=== PATIENT | female | born 1980 | race Caucasian/White ===

== ENCOUNTER → 2017-08-15 | Outpatient (CLI) | payer OTHER ==
[2017-08-15 13:17] LABS: BASO % 0.3 % (0.0-1.0); EOS # 0.1 10^3/uL (0.0-0.50); EOS % 0.8 % (0.0-3.0); HEMOGLOBIN 13.7 g/dl (12.0-16.0); IMMATURE GRANULOCYTE % 0.3 % (0-0); LYMPH # 2.1 10^3/uL (1.5-4.5); LYMPH % 26.9 % (24.0-44.0); MEAN CORPUSCULAR HEMOGLOBIN 28.9 pg (27.0-33.0); MEAN CORPUSCULAR HGB CONC 34.3 g/dl (32.0-36.5); MEAN CORPUSCULAR VOLUME 84.4 fl (80.0-96.0); MONO # 0.5 10^3/uL (0.0-0.8); NEUTROPHILS % 64.7 % (36.0-66.0); PLATELET COUNT, AUTOMATED 259 10^3/uL (150-450); RED BLOOD COUNT 4.74 10^6/uL (4.00-5.40); RED CELL DISTRIBUTION WIDTH 12.6 % (11.5-14.5); WHITE BLOOD COUNT 7.7 10^3/uL (4.0-10.0)
[2017-08-15 15:18] LABS: CHLAMYDIA DNA AMPLIFICATION NEGATIVE (NEGATIVE); GC DNA AMPLIFICATION NEGATIVE (NEGATIVE)
[2017-08-16 09:57] LABS: RUBELLA IgG QUALITATIVE IMMUNE (IMMUNE)
[2017-08-16 10:04] LABS: HBsAg Prenatal NEGATIVE (NEGATIVE)
[2017-08-16 10:25] LABS: HEPATITIS C VIRUS ABY INDEX < 0.0 INDEX (<0.8)
[2017-08-16 10:26] LABS: HIV 1&2 SCREEN CENTAUR NEGATIVE (NEGATIVE)
== END ==
LOC: M SMT 11:09
DX: Z36.9 Encounter for antenatal screening, unspecified (principal)
CPT/HCPCS: 86762

== ENCOUNTER → 2017-09-12 | Outpatient (CLI) | payer OTHER | LOC: M SMT 14:24 | DX: Z34.82 Encounter for supervision of other normal pregnancy, second trimester (principal) | CPT/HCPCS: 76811 ==

== ENCOUNTER → 2017-10-12 | Outpatient (CLI) | payer OTHER | LOC: M SMT 08:00 | DX: Z34.82 Encounter for supervision of other normal pregnancy, second trimester (principal) | CPT/HCPCS: 76816 ==

== ENCOUNTER → 2018-01-18 | Outpatient (REF) | payer OTHER | LOC: M LAB REF 16:57 | DX: Z34.83 Encounter for supervision of other normal pregnancy, third trimester (principal); Z3A.00 Weeks of gestation of pregnancy not specified ==

== ENCOUNTER 2018-02-02 05:02 | Inpatient (IN) | payer OTHER ==
[2018-02-02 05:56] LABS: HEMATOCRIT 34.8 % (36.0-47.0); HEMOGLOBIN 11.7 g/dl (12.0-15.5); MEAN CORPUSCULAR HGB CONC 33.6 g/dl (32.0-36.5); MEAN CORPUSCULAR VOLUME 83.3 fl (80.0-96.0); PLATELET COUNT, AUTOMATED 249 10^3/uL (150-450); RED BLOOD COUNT 4.18 10^6/uL (4.00-5.40); RED CELL DISTRIBUTION WIDTH 14.6 % (11.5-14.5); WHITE BLOOD COUNT 8.9 10^3/uL (4.0-10.0)
[2018-02-02] MEDS ORDERED: ceFAZolin 2 GM/D5W 50 ML IV BAG (J0690 PER 500MG) As Ordered (06:16)
[2018-02-02] MEDS ORDERED: BICITRA 30ML SOLN UDC As Ordered (06:16)
[2018-02-02] MEDS ORDERED: LR 1,000 ML IV (06:45)
[2018-02-02] MEDS: BICITRA 30ML SOLN UDC PO (07:32)
[2018-02-02] MEDS: LR 1,000 ML IV ×3 (07:32→14:01)
[2018-02-02] MEDS ORDERED: METOCLOPRAMIDE INJ 10MG/2ML VIAL (J2765) IV ×2 (07:47→10:00)
[2018-02-02] MEDS ORDERED: ONDANSETRON 4MG/2ML VIAL (J2405) IV ×3 (07:47→10:00)
[2018-02-02] MEDS ORDERED: NALBUPHINE HCL 10 MG/ML AMP (J2300) IV (07:47)
[2018-02-02] MEDS ORDERED: NALOXONE INJ 0.4 MG/1 ML VIAL (J2310) IV ×2 (07:47)
[2018-02-02] MEDS ORDERED: OXYTOCIN INJ 10 UNITS/ML VIAL (J2590) As Ordered (07:48)
[2018-02-02] MEDS ORDERED: MORPHINE PRES-FREE INJ 10 MG/10 ML VIAL (J2274) As Ordered (07:48)
[2018-02-02] MEDS ORDERED: ONDANSETRON 4MG/2ML VIAL (J2405) As Ordered (07:59)
[2018-02-02] MEDS ORDERED: KETOROLAC 60 MG/2 ML VIAL (J1885) As Ordered (08:16)
[2018-02-02] MEDS ORDERED: PHENYLephrine HCL 500 MCG/5 ML (100MCG/ML) SYRINGE (J2370) As Ordered (08:16)
[2018-02-02] MEDS ORDERED: ePHEDrine SULFATE 25 MG/5 ML(5MG/ML) SYRINGE As Ordered ×2 (08:16)
[2018-02-02] MEDS ORDERED: METOCLOPRAMIDE INJ 10MG/2ML VIAL (J2765) As Ordered (08:24)
[2018-02-02] MEDS ORDERED: fentaNYL 100 MCG/2 ML INJECTION (J3010) As Ordered (08:38)
[2018-02-02] MEDS ORDERED: MEPERIDINE 50 MG/ML 1ML VIAL (J2175) As Ordered (08:53)
[2018-02-02] MEDS: OXYTOCIN DRIP 30 UNITS in APPROPRIATE DILUENT 1 EA IV (09:04)
[2018-02-02] MEDS ORDERED: PROMETHAZINE 25 MG TAB PO (09:15)
[2018-02-02] MEDS ORDERED: RHOGAM 300 MCG (1500 IU) INJ (J2790) IM (09:15)
[2018-02-02] MEDS ORDERED: MEASLES,MUMPS,RUBELLA VACCINE INJ (MMR-II) (90707) SC (09:15)
[2018-02-02] MEDS ORDERED: fentaNYL 100 MCG/2 ML INJECTION (J3010) IV (10:00)
[2018-02-02] MEDS: PERCOCET 5MG/325MG TAB PO (13:03)
[2018-02-02] MEDS: KETOROLAC 30 MG/ML VIAL (J1885) IV ×2 (14:00→20:23)
[2018-02-02] MEDS: DOCUSATE SODIUM 100 MG CAP PO (20:22)
[2018-02-03] MEDS: SIMETHICONE 80 MG CHEW TAB PO ×2 (02:23→10:11)
[2018-02-03] MEDS: KETOROLAC 30 MG/ML VIAL (J1885) IV (02:25)
[2018-02-03] MEDS: PERCOCET 5MG/325MG TAB PO ×3 (02:26→20:05)
[2018-02-03 07:35] LABS: HEMATOCRIT 29.9 % (36.0-47.0); HEMOGLOBIN 10.1 g/dl (12.0-15.5); MEAN CORPUSCULAR HEMOGLOBIN 28.1 pg (27.0-33.0); MEAN CORPUSCULAR HGB CONC 33.8 g/dl (32.0-36.5); MEAN CORPUSCULAR VOLUME 83.3 fl (80.0-96.0); PLATELET COUNT, AUTOMATED 219 10^3/uL (150-450); RED BLOOD COUNT 3.59 10^6/uL (4.00-5.40); RED CELL DISTRIBUTION WIDTH 14.6 % (11.5-14.5); WHITE BLOOD COUNT 10.6 10^3/uL (4.0-10.0)
[2018-02-03] MEDS: DOCUSATE SODIUM 100 MG CAP PO ×2 (08:56→21:59)
[2018-02-03] MEDS: PRENATAL VITAMINS CHEWABLE TABLET PO (08:56)
[2018-02-03] MEDS: IBUPROFEN 800 MG TAB PO ×2 (10:11→18:07)
[2018-02-03] MEDS: MIRALAX *UNIT DOSE* 17GM PACKET PO (18:07)
[2018-02-04] MEDS: IBUPROFEN 800 MG TAB PO ×2 (02:26→10:01)
[2018-02-04] MEDS: PRENATAL VITAMINS CHEWABLE TABLET PO (10:01)
[2018-02-04] MEDS: DOCUSATE SODIUM 100 MG CAP PO (10:01)
[2018-02-04] MEDS: PERCOCET 5MG/325MG TAB PO (11:45)
== END 2018-02-04 12:10 | disposition home or self-care (01) | DRG 540 ==
LOC: M LDI 05:02 → M OBS 10:29
PROVIDERS: Obstetrics & Gynecology
PROC: 10D00Z1 Extraction of Products of Conception, Low, Open Approach (ICD-10-PCS; principal; 2018-02-02 07:30)
DX: O82 Encounter for cesarean delivery without indication (principal); Z87.59 Personal history of other complications of pregnancy, childbirth and the puerperium; Z37.0 Single live birth; Z3A.39 39 weeks gestation of pregnancy; Z79.899 Other long term (current) drug therapy

== ENCOUNTER → 2018-12-06 | Outpatient (CLI) | payer OTHER ==
[~2018-12-06] MED LIST: COLA100C5 PO; IBUP80TA PO; OXYC1TAB23 PO; PRENTAB9 PO
[2018-12-06 13:45] LABS: BASO % 0.3 % (0.0-1.0); EOS # 0.1 10^3/uL (0.0-0.50); EOS % 1.1 % (0.0-3.0); HEMATOCRIT 42.7 % (36.0-47.0); HEMOGLOBIN 13.9 g/dl (12.0-15.5); LYMPH # 1.8 10^3/uL (1.5-4.5); LYMPH % 26.1 % (24.0-44.0); MEAN CORPUSCULAR HEMOGLOBIN 28.8 pg (27.0-33.0); MEAN CORPUSCULAR HGB CONC 32.6 g/dl (32.0-36.5); MEAN CORPUSCULAR VOLUME 88.6 fl (80.0-96.0); MONO # 0.5 10^3/uL (0.0-0.8); MONO % 7.2 % (0.0-5.0); NEUTROPHILS # 4.6 10^3/uL (1.8-7.7); NEUTROPHILS % 65.2 % (36.0-66.0); PLATELET COUNT, AUTOMATED 262 10^3/uL (150-450); RED BLOOD COUNT 4.82 10^6/uL (4.00-5.40); WHITE BLOOD COUNT 7.1 10^3/uL (4.0-10.0)
[2018-12-06 15:26] LABS: CHLAMYDIA DNA AMPLIFICATION NEGATIVE (NEGATIVE); GC DNA AMPLIFICATION NEGATIVE (NEGATIVE)
[2018-12-07 11:24] LABS: RUBELLA IgG QUALITATIVE IMMUNE (IMMUNE)
[2018-12-07 15:21] LABS: HIV 1&2 SCREEN CENTAUR NEGATIVE (NEGATIVE)
== END ==
LOC: M SMT 10:44
PROVIDERS: ATTEND Advanced Practice Midwife
DX: Z34.81 Encounter for supervision of other normal pregnancy, first trimester (principal); Z3A.11 11 weeks gestation of pregnancy

== ENCOUNTER → 2019-01-31 | Outpatient (CLI) | payer OTHER ==
--- NOTE | 2019-01-31 11:43 | REP ---
OB ULTRASOUND: Real-time sonographic evaluation of gravid uterus performed. There is a single living intrauterine gestation, estimated gestational age 20 weeks 0 days based on today's ultrasound measurements, EDC 06/20/2019. BPD 45 mm = 19 weeks 4 days HC 169 mm = 19 weeks 4 days AC 151 mm = 20 weeks 2 days Femur length 32 mm = 20 weeks 0 days HC/AC ratio 1.12 within normal range. Estimated weight 333 grams, 53rd percentile. Cervix closed and measures 3.3 cm in length. heart rate 152 beats per minute. SEEN/GROSSLY UNREMARKABLE Lateral ventricles Yes Posterior fossa Yes Upper lip No Four-chamber heart No LVOT No RVOT No Stomach Yes Cord insertion Yes Three vessel cord Yes Kidneys Yes Bladder Yes Spine Yes position: Transverse with head toward the maternal left side. Placenta: Anterior and grade 1 with no previa or abruption. Amniotic fluid: Within normal limits. Electronically Signed by Preston Godoy MD 01/31/2019 05:13 P
== END ==
LOC: M RAD 10:05
PROVIDERS: ATTEND Advanced Practice Midwife
DX: O09.522 Supervision of elderly multigravida, second trimester (principal); Z3A.20 20 weeks gestation of pregnancy

== ENCOUNTER → 2019-03-07 | Outpatient (CLI) | payer OTHER ==
--- NOTE | 2019-03-11 13:03 | REP ---
Clinical: Anatomical evaluation. Comparison: 01/31/2019 . Findings: Examination demonstrates a single live intrauterine in transverse (head to maternal left) presentation. motion is identified by technologist. Placenta is noted anterior and grade zero without evidence for placenta previa or abruption. Amniotic fluid volume is normal. Cervix measures 4.3 cm in length and appears closed. No evidence for nuchal cord. Gestational age by LMP 25 weeks 0 days with SHELLEY 06/20/2019 . Gestational age by current measurements 25 weeks 1 day with SHELLEY 06/19/2019 . FHR equals 155 beats per minute. Estimated weight 847 grams ( 66 percentile). Anatomical assessment demonstrates normal structures including cranium, choroid plexus, cavum, cerebellum/posterior fossa, facial features, lungs, four-chamber heart/ventricular outflow tracts, diaphragm, stomach, cord insertion/three-vessel cord, bladder, and lower extremities. Impression: 1. Single live intrauterine in transverse lie demonstrating appropriate interval growth. 2. In conjunction with prior examination anatomical assessment is complete and normal. Electronically Signed by David Mejia MD 03/11/2019 12:55 P
== END ==
LOC: M RAD 10:19
PROVIDERS: ATTEND Advanced Practice Midwife
DX: O09.522 Supervision of elderly multigravida, second trimester (principal); Z3A.25 25 weeks gestation of pregnancy

== ENCOUNTER → 2019-04-18 | Outpatient (CLI) | payer OTHER ==
[2019-04-18 14:44] LABS: BASO % 0.1 % (0.0-1.0); EOS # 0.1 10^3/uL (0.0-0.5); EOS % 0.6 % (0.0-3.0); HEMATOCRIT 38.2 % (36.0-47.0); HEMOGLOBIN 12.7 g/dl (12.0-15.5); LYMPH # 1.7 10^3/uL (1.5-5.0); LYMPH % 20.3 % (24.0-44.0); MEAN CORPUSCULAR HEMOGLOBIN 29.1 pg (27.0-33.0); MEAN CORPUSCULAR HGB CONC 33.2 g/dl (32.0-36.5); MEAN CORPUSCULAR VOLUME 87.4 fl (80.0-96.0); MONO # 0.5 10^3/uL (0.0-0.8); MONO % 5.8 % (0.0-5.0); NEUTROPHILS # 6.2 10^3/uL (1.5-8.5); NEUTROPHILS % 72.8 % (36.0-66.0); PLATELET COUNT, AUTOMATED 227 10^3/uL (150-450); RED BLOOD COUNT 4.37 10^6/uL (4.00-5.40); WHITE BLOOD COUNT 8.6 10^3/uL (4.0-10.0)
== END ==
LOC: M LAB 13:06
PROVIDERS: ATTEND Advanced Practice Midwife
DX: O09.522 Supervision of elderly multigravida, second trimester (principal); Z3A.00 Weeks of gestation of pregnancy not specified

== ENCOUNTER → 2019-04-25 | Outpatient (CLI) | payer OTHER | LOC: M LAB 07:27 | PROVIDERS: ATTEND Advanced Practice Midwife | DX: O09.522 Supervision of elderly multigravida, second trimester (principal); Z3A.00 Weeks of gestation of pregnancy not specified ==

== ENCOUNTER → 2019-05-27 | Outpatient (REF) | payer OTHER | LOC: M LAB REF 12:57 | PROVIDERS: ATTEND Specialist | DX: O09.523 Supervision of elderly multigravida, third trimester (principal); Z3A.00 Weeks of gestation of pregnancy not specified ==

== ENCOUNTER 2019-06-23 00:45 | Inpatient (IN) | payer OTHER ==
[2019-06-23] VITALS (9 sets, daily range): BP systolic 113–123; BP diastolic 57–65
[~2019-06-23] VITALS: Ht 177.8 cm; Wt 119.1 kg
[~2019-06-23 00:45] MED LIST changes: +ACET-861 PO
[2019-06-23] MEDS ORDERED: LACTATED RINGER'S 1000 ML IV STA (01:55)
[2019-06-23] MEDS ORDERED: LR 1,000 ML IV SCH ×3 (01:55→06:15)
[2019-06-23] MEDS ORDERED: BICITRA 30ML SOLN UDC PO ONE (02:00)
[2019-06-23] MEDS ORDERED: ceFAZolin SOD 2 GM in IV 1 EA IV ONE (02:00)
[2019-06-23 02:27] LABS: HEMOGLOBIN 12.8 g/dl (12.0-15.5); MEAN CORPUSCULAR HEMOGLOBIN 28.4 pg (27.0-33.0); MEAN CORPUSCULAR VOLUME 88.9 fl (80.0-96.0); PLATELET COUNT, AUTOMATED 244 10^3/uL (150-450); WHITE BLOOD COUNT 9.5 10^3/uL (4.0-10.0)
[2019-06-23] MEDS ORDERED: MORPHINE PRES-FREE INJ 10 MG/10 ML VIAL (J2274) As Ordered ONE (04:44)
[2019-06-23] MEDS ORDERED: OXYTOCIN INJ 10 UNITS/ML VIAL (J2590) As Ordered ONE (05:11)
[2019-06-23] MEDS ORDERED: KETOROLAC 60 MG/2 ML VIAL (J1885) As Ordered ONE (05:19)
[2019-06-23] MEDS ORDERED: ONDANSETRON 4MG/2ML VIAL (J2405) As Ordered ONE (05:19)
[2019-06-23] MEDS ORDERED: dexameTHASONE 4 MG/ML 1ML VIAL (J1100) As Ordered ONE ×2 (05:19→05:20)
[2019-06-23] MEDS ORDERED: ePHEDrine SULFATE 25 MG/5 ML(5MG/ML) SYRINGE As Ordered ONE (05:20)
[2019-06-23] MEDS ORDERED: OXYTOCIN DRIP 30 UNITS in IV 1 EA IV SCH (05:56)
[2019-06-23] MEDS ORDERED: ONDANSETRON 4MG/2ML VIAL (J2405) IV PRN ×3 (06:00→08:00)
[2019-06-23] MEDS ORDERED: MEASLES,MUMPS,RUBELLA VACCINE INJ (MMR-II) (90707) SC SCH (06:00)
[2019-06-23] MEDS ORDERED: RHOGAM 300 MCG (1500 IU) INJ (J2790) IM SCH (06:00)
[2019-06-23] MEDS ORDERED: DOCUSATE SODIUM 100 MG CAP PO PRN (06:00)
[2019-06-23] MEDS ORDERED: OXYC1TAB23 PO (06:01)
[2019-06-23] MEDS ORDERED: fentaNYL 100 MCG/2 ML INJECTION (J3010) As Ordered ONE (06:05)
[2019-06-23] MEDS ORDERED: METOCLOPRAMIDE INJ 10MG/2ML VIAL (J2765) IV PRN ×2 (06:15→08:00)
[2019-06-23] MEDS ORDERED: fentaNYL 100 MCG/2 ML INJECTION (J3010) IV PRN (06:15)
[2019-06-23] MEDS ORDERED: MEPERIDINE INJ 25 MG/ML VIAL (J2175) IV PRN (06:15)
[2019-06-23] MEDS ORDERED: PERCOCET 5MG/325MG TAB PO PRN (06:15)
[2019-06-23] MEDS ORDERED: METHYLERGONOVINE MALEATE 0.2 MG/ML VIAL (J2210) IM STA (06:35)
--- NOTE | 2019-06-23 07:04 | HPE ---
DATE OF ADMISSION: 06/23/2019 This is a 38-year-old , 0, 3, 2, female at 40 and 2/7 weeks gestation by LMP consistent with a 11-week ultrasound. EDC 06/21/2019 who notes a spontaneous loss of fluid at approximately midnight on the day of admission. She continued to leak fluid and contracted started to increase. She denies vaginal bleeding. She has a history of 1 prior and is planning on repeat . COURSE: The patient initiated care at 11 weeks gestation, 12/06/2018. Her first trimester blood pressure 130/78. The patient plans to repeat for delivery Her initial scheduled time was delayed due to history of hand, foot in mouth disease late in . OBSTETRICAL HISTORY: 1. 2007 39 week vaginal delivery 7 pound 1 ounce female infant female delivered vaginally. She had severe vaginal lacerations requiring revision. 2. 2014 miscarriage. 3. 2015 miscarriage. 4. 2017 39 week 9 pound 7 ounce male infant. MEDICAL HISTORY: 1. Depression/anxiety. SURGICAL HISTORY: 1. Beecher tooth. 2. Revision of obstetrical lacerations February 2008. ALLERGIES: None. SOCIAL HISTORY: The patient lives in [place]. The father of the baby is involved. The patient denies cigarettes, alcohol, or drug use. FAMILY HISTORY: Noncontributory. PHYSICAL EXAM: Blood pressure 128/76, pulse 84, no apparent distress. HEAD AND NECK EXAM: Normal. LUNGS: Clear. HEART: Regular rate and rhythm. ABDOMEN: Nontender and gravid. heart tones category 1. Sterile vaginal exam, grossly ruptured clear fluid. 2-3 cm 50% -2 posterior soft vertex. EXTREMITIES: Nontender. LABS: Blood type B negative, rubella immune, RPR nonreactive, GBS negative. ASSESSMENT: 38 year old female at 40-2/7 weeks gestation with a history of prior who presents with spontaneous rupture of membranes. Patient will be admitted on 06/23/2019. PLAN: Repeat .
[2019-06-23] MEDS ORDERED: NALBUPHINE HCL 10 MG/ML AMP (J2300) IV PRN (08:00)
[2019-06-23] MEDS ORDERED: NALOXONE INJ 0.4 MG/1 ML VIAL (J2310) IV PRN ×2 (08:00)
[2019-06-23] MEDS ORDERED: diphenhydrAMINE INJ 50MG/ML VIAL (J1200) IV PRN (08:00)
[2019-06-23] MEDS: PRENATAL VITAMINS CHEWABLE TABLET PO SCH (08:40)
--- NOTE | 2019-06-23 09:31 | RO ---
DATE OF PROCEDURE: 06/23/2019 PREPROCEDURE DIAGNOSIS: 40 and 2/7 weeks gestation, labor, ruptured membranes, prior section. POSTPROCEDURE DIAGNOSIS: 40 and 2/7 weeks gestation, labor, ruptured membranes, prior section. PROCEDURE: Repeat low transverse section. SURGEON: Dr. Lee Denney [employer]ER: ANESTHESIA: Spinal. ESTIMATED BLOOD LOSS: 600 mL. URINE OUTPUT: 100 mL. FINDINGS: 3760 gram, 8 pound 5 ounce, male , Apgars 9 and 9. Normal uterus, fallopian tubes and ovaries. DESCRIPTION OF PROCEDURE: The patient was taken to the operating room where spinal anesthesia was induced. She was prepped and draped in sterile fashion in the supine position. A Perera catheter was placed. A Pfannenstiel skin incision was made with the scalpel and carried through to the fascia. The fascia was nicked and extended and the fascia was dissected off the rectus muscles. The peritoneal cavity was entered. A bladder flap was created. A curvilinear incision was made in the lower uterine segment until bulging membranes were noted. Membranes were ruptured with meconium stained fluid. The infant was delivered from the vertex position without difficulty. The cord was doubly clamped and cut. The infant was handed off to the awaiting nurses. The placenta was expressed. The uterus was left internalized and closed with #0 Vicryl in a running locked fashion. A second imbricating layer of #0 Vicryl was placed. The peritoneum was closed with #2-0 Vicryl in a running fashion. The fascia was closed with #0 Vicryl in a running fashion. The deep layer was irrigated and the deep layer was closed with #2-0 chromic in a running fashion. The skin was closed with #4-0 Monocryl subcuticular sutures. Sponge, instrument and needle counts were correct.
[2019-06-23] MEDS ORDERED: KETOROLAC 30 MG/ML VIAL (J1885) IV SCH (12:00)
[2019-06-23] MEDS: IBUPROFEN 800 MG TAB PO SCH (21:29)
[2019-06-24] MEDS ORDERED: CALCIUM CARBONATE 500 MG CHEW U/D PO ONE (01:45)
[2019-06-24 02:00] VITALS: BP 122/62
[2019-06-24] MEDS: IBUPROFEN 800 MG TAB PO SCH ×2 (05:38→15:02)
[2019-06-24 05:58] VITALS: BP 118/60
[2019-06-24 06:50] LABS: HEMATOCRIT 33.1 % (36.0-47.0); MEAN CORPUSCULAR HEMOGLOBIN 28.5 pg (27.0-33.0); MEAN CORPUSCULAR HGB CONC 31.7 g/dl (32.0-36.5); MEAN CORPUSCULAR VOLUME 89.7 fl (80.0-96.0); PLATELET COUNT, AUTOMATED 202 10^3/uL (150-450); RED BLOOD COUNT 3.69 10^6/uL (4.00-5.40)
[2019-06-24 06:52] LABS: HEMOGLOBIN 10.5 g/dl (12.0-15.5)
[2019-06-24] MEDS: PRENATAL VITAMINS CHEWABLE TABLET PO SCH (07:32)
[2019-06-24 10:00] VITALS: BP 120/58
[2019-06-24] MEDS ORDERED: IBUP80TA PO (11:29)
== END 2019-06-24 15:20 | disposition home or self-care (01) | DRG 540 ==
LOC: M LDO 00:45 → M LDI 01:51 → M OBS 07:38
PROVIDERS: ADMIT Specialist; ATTEND Specialist
PROC: 10D00Z1 Extraction of Products of Conception, Low, Open Approach (ICD-10-PCS; principal; 2019-06-23 05:00)
DX: O34.211 Maternal care for low transverse scar from previous cesarean delivery (principal); Z37.0 Single live birth; Z3A.40 40 weeks gestation of pregnancy

== ENCOUNTER → 2019-12-05 | Outpatient (REF) | payer OTHER | LOC: M SFHCWAGY 13:16 | PROVIDERS: ATTEND Obstetrics & Gynecology | DX: Z12.4 Encounter for screening for malignant neoplasm of cervix (principal) ==

== ENCOUNTER → 2020-01-07 | Outpatient (CLI) | payer OTHER | LOC: M LABSMTC 10:38 | PROVIDERS: ATTEND Anesthesiology | DX: Z01.818 Encounter for other preprocedural examination (principal); Z11.59 Encounter for screening for other viral diseases | CPT/HCPCS: C9803; U0003 ==

== ENCOUNTER → 2020-01-27 | Outpatient (CLI) | payer OTHER | LOC: M LABSMTC 09:57 | PROVIDERS: ATTEND Anesthesiology | DX: Z03.818 Encounter for observation for suspected exposure to other biological agents ruled out (principal); Z11.59 Encounter for screening for other viral diseases | CPT/HCPCS: C9803; U0003 ==

== ENCOUNTER 2020-01-30 10:35 | Day surgery (SDC) | payer OTHER ==
[~2020-01-30] VITALS: Ht 177.8 cm; Wt 106.0 kg
[~2020-01-30 10:35] MED LIST changes: +KETOROLAC 60MG 2ML VIAL As Ordered ONE; +LIDOCAINE 1% MDV 20ML VIAL SQ PRN; +LIDOCAINE 2% 100MG/5ML SDV (FOR ANES.) As Ordered ONE; +LR 1,000 ML IV ONE; +MIDAZOLAM INJ 2MG/2ML VIAL (J2250 PER 1MG) As Ordered ONE; +ONDANSETRON 4MG/2ML VIAL As Ordered ONE; +dexameTHASONE 4 MG/ML 1ML VIAL (J1100 PER 1MG) As Ordered ONE; +fentaNYL 100 MCG/2 ML INJECTION (J3010) As Ordered ONE; +propofoL 200 MG/20 ML VIAL As Ordered ONE
[2020-01-30] MEDS ORDERED: LIDOCAINE W/EPINEPHRINE 1% 20ML VIAL As Ordered ONE (11:30)
[2020-01-30] MEDS ORDERED: SILVER NITRATE APPLICATOR As Ordered ONE (11:30)
[2020-01-30] MEDS ORDERED: IODINE STRONG SOLN 15 ML BTL As Ordered ONE (11:32)
[2020-01-30 11:42] LABS: HEMATOCRIT 39.4 % (36.0-47.0); HEMOGLOBIN 13.2 g/dl (12.0-15.5); MEAN CORPUSCULAR HEMOGLOBIN 29.7 pg (27.0-33.0); MEAN CORPUSCULAR HGB CONC 33.5 g/dl (32.0-36.5); MEAN CORPUSCULAR VOLUME 88.7 fl (80.0-96.0); PLATELET COUNT, AUTOMATED 243 10^3/uL (150-450); RED BLOOD COUNT 4.44 10^6/uL (4.00-5.40); WHITE BLOOD COUNT 6.6 10^3/uL (4.0-10.0)
[2020-01-30 12:00] LABS: HCG, SERUM QUALITATIVE NEGATIVE (NEGATIVE)
[2020-01-30] MEDS ORDERED: propofoL 200 MG/20 ML VIAL As Ordered ONE (12:26)
[2020-01-30 13:10] VITALS: BP 117/73
[2020-01-30] MEDS ORDERED: MEPERIDINE INJ 25 MG/ML VIAL (J2175) IV PRN (13:15)
[2020-01-30] MEDS ORDERED: fentaNYL 100 MCG/2 ML INJECTION (J3010) IV PRN (13:15)
[2020-01-30] MEDS ORDERED: METOCLOPRAMIDE INJ 10MG/2ML VIAL (J2765 PER 1) IV PRN (13:15)
[2020-01-30] MEDS ORDERED: LR 1,000 ML IV SCH (13:15)
[2020-01-30] MEDS ORDERED: PERCOCET 5MG/325MG TAB PO PRN (13:15)
[2020-01-30] MEDS ORDERED: ONDANSETRON 4MG/2ML VIAL IV PRN (13:15)
== END 2020-01-30 13:58 | disposition home or self-care (01) ==
LOC: M SDC 10:35
PROVIDERS: ATTEND Obstetrics & Gynecology
DX: R87.613 High grade squamous intraepithelial lesion on cytologic smear of cervix (HGSIL) (principal); N88.8 Other specified noninflammatory disorders of cervix uteri; F17.218 Nicotine dependence, cigarettes, with other nicotine-induced disorders
CPT/HCPCS: 36415; 57460; 81025; 84703; 85027; 86850; 86900; 86901; 88307; J1100; J1885; J2250; J2405; J3010

== ENCOUNTER → 2021-06-23 | Outpatient (REF) | payer OTHER ==
[~2021-06-23] MED LIST changes: -KETOROLAC 60MG 2ML VIAL As Ordered ONE; -LIDOCAINE 1% MDV 20ML VIAL SQ PRN; -LIDOCAINE 2% 100MG/5ML SDV (FOR ANES.) As Ordered ONE; -LR 1,000 ML IV ONE; -MIDAZOLAM INJ 2MG/2ML VIAL (J2250 PER 1MG) As Ordered ONE; -ONDANSETRON 4MG/2ML VIAL As Ordered ONE; -dexameTHASONE 4 MG/ML 1ML VIAL (J1100 PER 1MG) As Ordered ONE; -fentaNYL 100 MCG/2 ML INJECTION (J3010) As Ordered ONE; -propofoL 200 MG/20 ML VIAL As Ordered ONE
== END ==
LOC: M SFHCWAGY 17:15
PROVIDERS: ATTEND Obstetrics & Gynecology
DX: Z12.4 Encounter for screening for malignant neoplasm of cervix (principal)

== ENCOUNTER → 2023-01-11 | Outpatient (CLI) | payer OTHER | LOC: M WHC 13:43 | PROVIDERS: ATTEND Obstetrics & Gynecology | DX: Z12.31 Encounter for screening mammogram for malignant neoplasm of breast (principal) ==

== ENCOUNTER → 2023-01-11 | Outpatient (REF) | payer OTHER | LOC: M SFHCWAGY 17:59 | PROVIDERS: ATTEND Obstetrics & Gynecology | DX: Z12.4 Encounter for screening for malignant neoplasm of cervix (principal) ==

== ENCOUNTER → 2023-03-06 | Outpatient (REF) | payer OTHER | LOC: M SFHCWAGY 18:06 | PROVIDERS: ATTEND Obstetrics & Gynecology | DX: N87.9 Dysplasia of cervix uteri, unspecified (principal) ==

== ENCOUNTER 2023-04-17 23:35 | Inpatient (IN) | payer OTHER ==
[~2023-04-17] VITALS: Ht 177.8 cm; Wt 109.1 kg
[2023-04-18] MEDS ORDERED: LEXA1TAB PO (02:04)
[2023-04-18] MEDS ORDERED: HOME MED LIST COMPLETE! XX SCH (02:05)
[2023-04-18 03:43] LABS: HEMOGLOBIN 13.2 g/dl (12.0-15.5); MEAN CORPUSCULAR HEMOGLOBIN 27.8 pg (27.0-33.0); MEAN CORPUSCULAR VOLUME 84.4 fl (80.0-96.0); PLATELET COUNT, AUTOMATED 257 10^3/uL (150-450); RED BLOOD COUNT 4.74 10^6/uL (4.00-5.40); WHITE BLOOD COUNT 8.2 10^3/uL (4.0-10.0)
[2023-04-18 04:07] LABS: ETHYL ALCOHOL (ETHANOL) < 0.003 % (0.000-0.010)
[2023-04-18 04:09] LABS: ACETAMINOPHEN LEVEL < 2.0 UG/ML (10.0-20.0); ALBUMIN 3.7 G/DL (3.2-5.2); ALKALINE PHOSPHATASE 61 U/L (46-116); ALT/SGPT 16 U/L (7.0-40); AST/SGOT 13 U/L (<34); BILIRUBIN,DIRECT 0.1 MG/DL (<0.4); BILIRUBIN,TOTAL 0.3 MG/DL (0.3-1.2); BLOOD UREA NITROGEN 14 MG/DL (9-23); CALCIUM LEVEL 8.3 MG/DL (8.5-10.1); CARBON DIOXIDE LEVEL 23 MMOL/L (20-31); CHLORIDE LEVEL 110 MMOL/L (98-107); CREATININE FOR GFR 0.65 MG/DL (0.55-1.30); GLOMERULAR FILTRATION RATE > 60.0 (>58); GLUCOSE, FASTING 87 MG/DL (60-100); POTASSIUM SERUM 4.1 MMOL/L (3.5-5.1); SALICYLATE LEVEL < 3.0 MG/DL (<30); SODIUM LEVEL 142 MMOL/L (136-145); TOTAL PROTEIN 6.5 G/DL (5.7-8.2)
[2023-04-18 04:11] LABS: THYROID STIMULATING HORMONE 0.869 uIU/ML (0.55-4.78)
[2023-04-18 05:46] LABS: AMPHETAMINES LEVEL URINE NEGATIVE (NEGATIVE); BARBITURATES URINE NEGATIVE (NEGATIVE); BENZODIAZEPINES URINE NEGATIVE (NEGATIVE); COCAINE METABOLITE URINE NEGATIVE (NEGATIVE)
[2023-04-18 05:47] LABS: METHADONE URINE NEGATIVE (NEGATIVE); OPIATES URINE NEGATIVE (NEGATIVE); PHENCYCLIDINE URINE NEGATIVE (NEGATIVE)
[2023-04-18 05:54] LABS: CANNABINOIDS URINE POSITIVE (NEGATIVE)
[2023-04-18 07:30] LABS: HCG, SERUM QUALITATIVE NEGATIVE (NEGATIVE)
[2023-04-18] MEDS: ESCITALOPRAM OXALATE 5MG TABLET (LEXAPRO) PO SCH (09:00)
[2023-04-19] MEDS: ESCITALOPRAM OXALATE 5MG TABLET (LEXAPRO) PO SCH (09:43)
[2023-04-20] MEDS: ESCITALOPRAM OXALATE 5MG TABLET (LEXAPRO) PO SCH (09:51)
[2023-04-20 17:12] VITALS: BP 134/86; TEMP 98.7; O2SAT 97
[2023-04-21 06:37] VITALS: BP 155/99; TEMP 97.2; O2SAT 98
[2023-04-21] MEDS: ESCITALOPRAM OXALATE 5MG TABLET (LEXAPRO) PO SCH (12:48)
[2023-04-21 18:31] VITALS: BP 138/82; TEMP 98.8; O2SAT 98
[2023-04-22 06:11] VITALS: BP 147/83; TEMP 97; O2SAT 99
[2023-04-22] MEDS ORDERED: traZODone 50 MG TAB PO PRN (08:20)
[2023-04-22] MEDS ORDERED: diphenhydrAMINE 25MG CAP PO PRN (08:20)
[2023-04-22] MEDS ORDERED: ACETAMINOPHEN TAB 650MG DOSE (2X325MG) PO PRN (08:20)
[2023-04-22] MEDS ORDERED: MAALOX 30 ML SUSP *UDC PO PRN (08:20)
[2023-04-22] MEDS ORDERED: MOM 30ML SUSPENSION UDC PO PRN (08:20)
[2023-04-22] MEDS ORDERED: IBUPROFEN 400MG TAB PO PRN (08:20)
[2023-04-22] MEDS: ESCITALOPRAM OXALATE 5MG TABLET (LEXAPRO) PO SCH (12:17)
[2023-04-22 18:00] VITALS: BP 130/96; TEMP 98.5; O2SAT 98
[2023-04-23 05:38] VITALS: BP 132/90; TEMP 97.5; O2SAT 100
[2023-04-23] MEDS: ESCITALOPRAM OXALATE 5MG TABLET (LEXAPRO) PO SCH (12:27)
[2023-04-23 18:00] VITALS: BP 127/64; TEMP 98.2; O2SAT 98
[2023-04-24 06:40] VITALS: BP 136/77; TEMP 98; O2SAT 99
[2023-04-24] MEDS ORDERED: LEXA5TAB13 PO (11:54)
[2023-04-24] MEDS: ESCITALOPRAM OXALATE 5MG TABLET (LEXAPRO) PO SCH (12:18)
== END 2023-04-24 13:07 | disposition home or self-care (01) | DRG 754 ==
LOC: M ED 23:35 → M PSY 04-20 15:56 → M ED 04-20 15:57
PROVIDERS: ADMIT Student in an Organized Health Care Education/Training Program; ATTEND Student in an Organized Health Care Education/Training Program
DX: F32.A Depression, unspecified (principal); F41.9 Anxiety disorder, unspecified; F17.200 Nicotine dependence, unspecified, uncomplicated; Z79.899 Other long term (current) drug therapy; Z63.4 Disappearance and death of family member

== ENCOUNTER → 2024-04-25 | Outpatient (REF) | payer OTHER ==
[~2024-04-25] MED LIST changes: +LEXA1TAB PO; +LEXA5TAB13 PO
[2024-04-27 13:46] LABS: HPV APTIMA Detected (Not Detected)
== END ==
LOC: M SFHCWAGY 13:10
PROVIDERS: ATTEND Obstetrics & Gynecology
DX: Z12.4 Encounter for screening for malignant neoplasm of cervix (principal); R87.613 High grade squamous intraepithelial lesion on cytologic smear of cervix (HGSIL)

== ENCOUNTER → 2024-04-25 | Outpatient (CLI) | payer OTHER | LOC: M WHC 08:11 | PROVIDERS: ATTEND Obstetrics & Gynecology | DX: Z12.31 Encounter for screening mammogram for malignant neoplasm of breast (principal); R92.313 Mammographic fatty tissue density, bilateral breasts ==

== ENCOUNTER → 2024-05-31 | Outpatient (REF) | payer OTHER, SELFPAY | LOC: M SFHCWAGY 12:47 | PROVIDERS: ATTEND Obstetrics & Gynecology | DX: R87.613 High grade squamous intraepithelial lesion on cytologic smear of cervix (HGSIL) (principal) ==